=== PATIENT | female | born 1955 | race Caucasian/White ===

== ENCOUNTER → 2017-02-16 | Outpatient (CLI) | payer BC ==
--- NOTE | 2017-02-16 10:34 | MM ---
Reason for exam: history of breast cancer, conservation therapy. Last mammogram was performed 1 year ago. History: Patient has history of breast cancer at age 59. Malignant MG pre op needle loc RT of the right breast, May 18, 2015. Malignant US biopsy breast VAD RT of the right breast, May 06, 2015. Malignant US biopsy breast add'l VAD RT of the right breast, May 06, 2015. Radiation therapy of the right breast. Taking antineoplastic for 2 years beginning at age 59. Physical Findings: Nurse did not find any significant physical abnormalities on exam. MG 3D Diag Mammo W/Cad DHAVAL Bilateral CC and MLO view(s) were taken. Prior study comparison: February 16, 2016, bilateral MG 3d diag mammo w/cad DHAVAL. May 06, 2015, right breast MG diagnostic mammo RT wo CAD. May 06, 2015, right breast MG diagnostic mammo RT wo CAD. April 21, 2015, mammogram. December 24, 2013, mammogram. There are scattered fibroglandular densities. Previous mammotome biopsy in the right breast. Post treatment and post surgical changes in the right breast. No significant new findings when compared with previous films. These results were verbally communicated with the patient and result sheet given to the patient on 02/16/17. ASSESSMENT: Benign, BI-RAD 2 RECOMMENDATION: Follow-up diagnostic mammogram of both breasts in 1 year.
== END | disposition home or self-care (01) ==
LOC: RADMAMWWP 09:34
PROVIDERS: ATTEND Radiology Diagnostic Radiology
DX: C50.912 Malignant neoplasm of unspecified site of left female breast (principal)
CPT/HCPCS: G0204; G0279

== ENCOUNTER → 2018-02-19 | Outpatient (CLI) | payer BC ==
--- NOTE | 2018-02-19 12:01 | MM ---
Reason for exam: additional evaluation requested from prior study. Last mammogram was performed 1 year ago. History: Patient has history of breast cancer at age 59. Malignant MG pre op needle loc RT of the right breast, May 18, 2015. Malignant US biopsy breast VAD RT of the right breast, May 06, 2015. Malignant US biopsy breast add'l VAD RT of the right breast, May 06, 2015. Radiation therapy of the right breast. Taking antineoplastic for 2 years beginning at age 59. Physical Findings: Nurse did not find any significant physical abnormalities on exam. MG 3D Diag Mammo W/Cad DHAVAL Bilateral CC and MLO view(s) were taken. Prior study comparison: February 16, 2017, bilateral MG 3d diag mammo w/cad DHAVAL. February 16, 2016, bilateral MG 3d diag mammo w/cad DHAVAL. The breast tissue is heterogeneously dense. This may lower the sensitivity of mammography. Stable benign calcifications. Post operative lumpectomy changes right breast are stable. No significant new findings when compared with previous films. These results were verbally communicated with the patient and result sheet given to the patient on 02/19/18. ASSESSMENT: Benign, BI-RAD 2 RECOMMENDATION: Follow-up diagnostic mammogram of both breasts in 1 year.
== END ==
LOC: RADMAMWWP 09:32
PROVIDERS: ATTEND Radiology Diagnostic Radiology
DX: C50.911 Malignant neoplasm of unspecified site of right female breast (principal); Z79.811 Long term (current) use of aromatase inhibitors
CPT/HCPCS: 77066; G0279

== ENCOUNTER → 2019-02-20 | Outpatient (CLI) | payer BC ==
--- NOTE | 2019-02-20 11:34 | MM ---
Reason for exam: additional evaluation requested from prior study. Last mammogram was performed 1 year ago. History: Patient has history of breast cancer at age 59. Malignant MG pre op needle loc RT of the right breast, May 18, 2015. Malignant US biopsy breast VAD RT of the right breast, May 06, 2015. Malignant US biopsy breast add'l VAD RT of the right breast, May 06, 2015. Radiation therapy of the right breast. Taking antineoplastic for 2 years beginning at age 59. Physical Findings: Nurse did not find any significant physical abnormalities on exam. MG 3D Diag Mammo W/Cad DHAVAL Bilateral CC and MLO view(s) were taken. Prior study comparison: February 19, 2018, bilateral MG 3d diag mammo w/cad DHAVAL. February 16, 2017, bilateral MG 3d diag mammo w/cad DHAVAL. There are scattered fibroglandular densities. Post surgical and post therapy changes right breast. No significant new findings when compared with previous films. These results were verbally communicated with the patient and result sheet given to the patient on 02/20/19. ASSESSMENT: Benign, BI-RAD 2 RECOMMENDATION: Follow-up diagnostic mammogram of both breasts in 1 year.
== END | disposition home or self-care (01) ==
LOC: RADMAMWWP 10:53
PROVIDERS: ATTEND Radiology Diagnostic Radiology
DX: Z08 Encounter for follow-up examination after completed treatment for malignant neoplasm (principal); Z85.3 Personal history of malignant neoplasm of breast
CPT/HCPCS: 77062; 77066

== ENCOUNTER → 2020-04-07 | Outpatient (CLI) | payer BC ==
--- NOTE | 2020-04-08 10:07 | MM ---
Reason for exam: additional evaluation requested from prior study. Last mammogram was performed 1 year and 1 month ago. History: Patient has history of breast cancer at age 59. Malignant MG pre op needle loc RT of the right breast, May 18, 2015. Malignant US biopsy breast VAD RT of the right breast, May 06, 2015. Malignant US biopsy breast add'l VAD RT of the right breast, May 06, 2015. Radiation therapy of the right breast. Taking antineoplastic for 2 years beginning at age 59. Physical Findings: Nurse did not find any significant physical abnormalities on exam. MG 3D Diag Mammo W/Cad DHAVAL Bilateral CC and MLO view(s) were taken. Prior study comparison: February 20, 2019, bilateral MG 3d diag mammo w/cad DHAVAL. February 19, 2018, bilateral MG 3d diag mammo w/cad DHAVAL. There are scattered fibroglandular densities. Finding: Architectural distortion in the right breast consistent with post surgical changes. There are benign appearing calcifications bilaterally. Previous mammotome biopsy in the right breast. These results were verbally communicated with the patient and result sheet given to the patient on 04/07/20. ASSESSMENT: Benign, BI-RAD 2 RECOMMENDATION: Follow-up diagnostic mammogram of both breasts in 1 year.
== END | disposition home or self-care (01) ==
LOC: RADMAMWWP 08:53
PROVIDERS: ATTEND Radiology Diagnostic Radiology
DX: C50.911 Malignant neoplasm of unspecified site of right female breast (principal)
CPT/HCPCS: 77062; 77066

== ENCOUNTER → 2021-04-12 | Outpatient (CLI) | payer BC ==
--- NOTE | 2021-04-14 13:26 | MM ---
Reason for exam: additional evaluation requested from prior study. Last mammogram was performed 1 year ago. History: Patient has history of breast cancer at age 59. Malignant MG pre op needle loc RT of the right breast, May 18, 2015. Malignant US biopsy breast VAD RT of the right breast, May 06, 2015. Malignant US biopsy breast add'l VAD RT of the right breast, May 06, 2015. Radiation therapy of the right breast. Took antineoplastic for 5 years beginning at age 59. Physical Findings: Nurse did not find any significant physical abnormalities on exam. MG 3D Diag Mammo W/Cad DHAVAL Bilateral CC and MLO view(s) were taken. Prior study comparison: April 07, 2020, bilateral MG 3d diag mammo w/cad DHAVAL. February 20, 2019, bilateral MG 3d diag mammo w/cad DHAVAL. There are scattered fibroglandular densities. Previous mammotome biopsy in the right breast. Right post operative changes. These results were verbally communicated with the patient and result sheet given to the patient on 04/12/21. ASSESSMENT: Benign, BI-RAD 2 RECOMMENDATION: Routine screening mammogram of both breasts in 1 year.
== END | disposition home or self-care (01) ==
LOC: RADMAMWWP 10:07
PROVIDERS: ATTEND Radiology Radiation Oncology
DX: N64.89 Other specified disorders of breast (principal); Z85.3 Personal history of malignant neoplasm of breast
CPT/HCPCS: 77062; 77066

== ENCOUNTER → 2023-05-07 | Outpatient (CLI) | payer MEDICARE ==
--- NOTE | 2023-05-08 19:23 | MM ---
Reason for Exam: Screening (asymptomatic). Last mammogram was performed 2 year(s) and 1 month(s) ago. Patient History: Menarche at age 13. First Full-Term at age 25. Hysterectomy at age 44. Breast cancer, age 59. 05/18/2015, Malignant Core Biopsy on the right side. 05/06/2015, Malignant Core Biopsy on the right side. 05/06/2015, Malignant Core Biopsy on the right side. Radiation Therapy, right. Prior Study Comparison: 02/20/2019 Bilateral Diagnostic Mammogram, [facility]. 04/07/2020 Bilateral Diagnostic Mammogram, [facility]. 04/12/2021 Bilateral Diagnostic Mammogram, [facility]. Tissue Density: There are scattered fibroglandular densities. Findings: Analyzed By CAD. Redemonstrated postsurgical and posttreatment changes right breast. Microclip anterior 1:00 right breast from prior biopsy. There is no suspicious group of microcalcifications or new suspicious mass in either breast. Overall Assessment: Benign, BI-RAD 2 Management: Screening Mammogram of both breasts in 1 year. . Patient should continue monthly self-breast exams. A clinical breast exam by your physician is recommended on an annual basis. This exam should not preclude additional follow-up of suspicious palpable abnormalities. Note on Shelia scores and lifetime risk: 1. A Shelia score greater than 3% is considered moderate risk. If this is the case, consider specialist referral to assess eligibility for a risk reducing agent. 2. If overall lifetime risk for the development of breast cancer is 20% or higher, the patient may qualify for future screening with alternating mammogram and breast MRI. Electronically signed and approved by: Kun Moscoso M.D. Radiologist
== END | disposition home or self-care (01) ==
LOC: RADMAMWWP 12:49
PROVIDERS: ATTEND Family Medicine
DX: Z12.31 Encounter for screening mammogram for malignant neoplasm of breast (principal)
CPT/HCPCS: 77067

== ENCOUNTER → 2024-08-21 | Outpatient (CLI) | payer MEDICARE ==
--- NOTE | 2024-08-22 19:54 | MM ---
Reason for Exam: Screening (asymptomatic). Last mammogram was performed 1 year(s) and 3 month(s) ago. Patient History: Menarche at age 13. First Full-Term at age 25. Hysterectomy at age 44. Breast cancer, age 59. Previous chest radiation therapy at age 59. 05/18/2015, Malignant Core Biopsy on the right side. 05/06/2015, Malignant Core Biopsy on the right side. 05/06/2015, Malignant Core Biopsy on the right side. Radiation Therapy, right. Prior Study Comparison: 04/07/2020 Bilateral Diagnostic Mammogram, [facility]. 04/12/2021 Bilateral Diagnostic Mammogram, [facility]. 05/07/2023 Bilateral MG screening mammo w CAD, [facility]. Tissue Density: There are scattered areas of fibroglandular density. Findings: Analyzed By CAD. Postsurgical and posttreatment changes right breast. Microclip anterior right breast from prior biopsy. Areas of asymmetric density are unchanged. There is no suspicious group of microcalcifications or new suspicious mass in either breast. Overall Assessment: Benign, BI-RAD 2 Management: Screening Mammogram of both breasts in 1 year. . Patient should continue monthly self-breast exams. A clinical breast exam by your physician is recommended on an annual basis. This exam should not preclude additional follow-up of suspicious palpable abnormalities. [facility], , 08/22/2024 7:51 PM. Electronically signed and approved by: Kun Moscoso M.D. Radiologist
== END | disposition home or self-care (01) ==
LOC: RADMAMWWP 07:14
PROVIDERS: ATTEND Family Medicine
CPT/HCPCS: 77063; 77067